=== PATIENT | male | born 1970 ===

== ENCOUNTER 2025-06-22 11:07 | Outpatient (AMB) | payer BC, SELFPAY | END 2025-06-22 11:22 | disposition home or self-care (01) | LOC: HO.HMGAL 11:07 | PROVIDERS: PCP Nurse Practitioner Family; Visit Provider Registered Nurse Emergency | DX: J30.89 Other allergic rhinitis (principal) | CPT/HCPCS: 95117; 95165 ==

== ENCOUNTER 2025-07-13 12:00 | Outpatient (AMB) | payer BC, SELFPAY | END 2025-07-13 12:05 | disposition home or self-care (01) | LOC: HO.HMGAL 12:00 | PROVIDERS: PCP Nurse Practitioner Family; Visit Provider Registered Nurse Emergency | DX: J30.89 Other allergic rhinitis (principal) | CPT/HCPCS: 95117; 95165 ==

== ENCOUNTER 2025-08-05 11:51 | Outpatient (AMB) | payer BC, SELFPAY | END 2025-08-05 11:51 | disposition home or self-care (01) | LOC: HO.HMGAL 11:51 | PROVIDERS: PCP Nurse Practitioner Family; Visit Provider Registered Nurse Emergency | DX: J30.89 Other allergic rhinitis (principal) | CPT/HCPCS: 95117; 95165 ==

== ENCOUNTER 2025-08-31 11:52 | Outpatient (AMB) | payer BC, SELFPAY | END 2025-08-31 11:53 | disposition home or self-care (01) | LOC: HO.HMGAL 11:52 | PROVIDERS: PCP Nurse Practitioner Family; Visit Provider Registered Nurse Emergency | DX: J30.89 Other allergic rhinitis (principal) | CPT/HCPCS: 95117; 95165 ==